=== PATIENT | female | born 2000 | race Two or more races ===

== ENCOUNTER 2025-02-02 21:23 | Emergency (ER) | payer OTHER ==
[2025-02-02 21:28] VITALS: TEMP 98.1; BMI 32.3
[2025-02-02] MEDS ORDERED: ACETAMINOPHEN INJECTION 100 ML ONE (22:02)
[2025-02-02 22:04] LABS: ABSOLUTE IMMATURE GRANULOCYTES 0.02 x10^3/uL (0.0-0.031); BASOPHILS # 0.05 x10^3/uL (0.01-0.08); EOSINOPHIL % 3.2 % (0.7-5.8); EOSINOPHILS # 0.31 x10^3/uL (0.04-0.36); MCHC 32.3 g/dl (32.2-35.5); MEAN CELL VOLUME 88.5 fl (79.4-94.8); MEAN PLT VOLUME 9.8 fl (9.4-12.3); MONOCYTE # 0.48 x10^3/uL (0.24-0.86); MONOCYTE % 4.9 % (4.7-12.5); RDW 13.1 % (12.1-16.5)
[2025-02-02] MEDS: ACETAMINOPHEN 1000 MG/100 ML BAG IVPB ONE (22:04)
[2025-02-02 22:12] LABS: INR 1.09 (0.83-1.09); PROTHROMBIN TIME (PATIENT) 12.0 SEC (9.7-13.0)
[2025-02-02 22:15] LABS: ACTIVATED PTT 28.5 SECONDS (25.2-36.5)
[2025-02-02 22:36] LABS: GLUCOSE,RANDOM 80.0 mg/dL (74-106); TOT PROT 8.4 g/dl (6.4-8.2)
[2025-02-02 22:37] LABS: CO2 20.0 mmol/L (21-32)
[2025-02-02 22:39] LABS: ALK PHOS 63.0 U/L (40-150)
[2025-02-02 22:41] LABS: SGOT/AST 21.0 U/L (5-34); SGPT/ALT 18.0 U/L (0-55)
[2025-02-02 22:42] LABS: CREATININE 0.76 mg/dL (0.55-1.3)
[2025-02-02 23:32] LABS: HIV INTERPRETATION NEGATIVE (NEGATIVE)
[2025-02-02 23:33] LABS: HCV DIAGNOSTIC IN-HOUSE W/RFLX NON-REACTIVE (NONREACTIVE)
[2025-02-03 00:25] VITALS: BP 120/85; PULSE 85; RESP 19
== END 2025-02-03 00:41 | disposition home or self-care (01) ==
LOC: JER 21:23
PROC: 3E033NZ Introduction of Analgesics, Hypnotics, Sedatives into Peripheral Vein, Percutaneous Approach (ICD-10-PCS; principal; 2025-02-02)
DX: R07.89 Other chest pain (principal); R06.02 Shortness of breath
CPT/HCPCS: 36415; 71045-TC-FY; 80053; 84484; 84703; 85025; 85610; 85730; 86803; 87389; 93005; 93010; 99285-25

== ENCOUNTER 2025-02-13 19:02 | Emergency (ER) | payer OTHER ==
[2025-02-13 19:15] VITALS: BP 124/80; PULSE 103; RESP 18; TEMP 98.6; BMI 34.0
== END 2025-02-13 19:58 | disposition home or self-care (01) ==
LOC: JERFT 19:02
DX: R50.9 Fever, unspecified (principal); J06.9 Acute upper respiratory infection, unspecified; R09.81 Nasal congestion; Z20.822 Contact with and (suspected) exposure to COVID-19
CPT/HCPCS: 87637-QW; 99283-25